=== PATIENT | female | born 1940 | race Caucasian/White ===

== ENCOUNTER 2018-09-08 15:23 | Emergency (ER) | payer MEDICARE, OTHER ==
[2018-09-08 15:57] VITALS: BP 105/59
--- NOTE | 2018-09-08 16:07 | UC ---
Throat Pain/Nasal Smith HPI - HPI Summary HPI Summary: 78 year old woman here with a chief complaint of runny nose sinus pressure sore throat and now with laryngitis. Says started about 6 days ago. Started about an worse. Rhinorrhea is yellow. Patient's tried acetaminophen and Vicks which helps briefly but then symptoms get worse again. No complaint of cough or chest congestion. - History of Current Complaint Chief Complaint: UCGeneralIllness Stated Complaint: CONGESTION/COUGH Time Seen by Provider: 09/08/18 15:57 Hx Last Menstrual Period: years Pain Intensity: 8 - Allergies/Home Medications Allergies/Adverse Reactions: Allergies Allergy/AdvReac Type Severity Reaction Status Date / Time No Known Allergies Allergy Verified 09/08/18 15:49 Home Medications: Home Medications Acetaminophen [Extra Strength Non-Aspirin] 1,000 mg PO Q8H PRN 09/08/18 [ History Confirmed 09/08/18] Omeprazole 40 mg PO DAILY 09/08/18 [History Confirmed 09/08/18] PMH/Surg Hx/FS Hx/Imm Hx Previously Healthy: Yes Cardiovascular History: Hypertension - Surgical History Surgical History: Yes Surgery Procedure, Year, and Place: YOUNG CHILD T&A. RIGHT ING. HERNIA REPAIR. - 5 BREST SURGERIES (FIBROCYSTIC); hysterectomy 05/18/15; cataracts 2013. R-TKA - Family History Known Family History: Negative: Diabetes - Social History Alcohol Use: Occasionally Alcohol Amount: 2-3 DRINKS/MONTH Substance Use Type: None Smoking Status (MU): Former Smoker Type: Cigarettes Amount Used/How Often: 1PPD 30 YRS Have You Smoked in the Last Year: No When Did the Patient Quit Smoking/Using Tobacco: Review of Systems All Other Systems Reviewed And Are Negative: Yes Constitutional: Positive: Negative Skin: Positive: Negative Eyes: Positive: Negative ENT: Positive: Sore Throat, Nasal Discharge, Sinus Congestion, Sinus Pain/ Tenderness Respiratory: Positive: Negative Cardiovascular: Positive: Negative Gastrointestinal: Positive: Negative Motor: Positive: Negative Neurovascular: Positive: Negative Musculoskeletal: Positive: Negative Neurological: Positive: Negative Psychological: Positive: Negative Is Patient Immunocompromised?: No Physical Exam Triage Information Reviewed: Yes Appearance: No Pain Distress, Well-Nourished, Ill-Appearing - MILD Vital Signs: Initial Vital Signs Temp 97.6 F 09/08/18 15:52 Pulse 100 09/08/18 15:52 Resp 20 09/08/18 15:52 BP 105/59 09/08/18 15:52 Pulse Ox 97 09/08/18 15:52 Vital Signs Reviewed: Yes Eye Exam: Normal Eyes: Positive: Conjunctiva Clear ENT: Positive: Pharyngeal erythema, Nasal congestion, Nasal drainage, TMs normal , Sinus tenderness Neck exam: Normal Neck: Positive: Supple Respiratory Exam: Normal Respiratory: Positive: Lungs clear, Normal breath sounds, No respiratory distress Cardiovascular: Positive: RRR Musculoskeletal Exam: Normal Musculoskeletal: Positive: Strength Intact, ROM Intact Neurological Exam: Normal Neurological: Positive: Alert, Muscle Tone Normal Psychological Exam: Normal Psychological: Positive: Age Appropriate Behavior Skin Exam: Normal Throat Pain/Nasal Course/Dx - Course Course Of Treatment: DISCUSSED VIRAL VERSES BACTERIAL INFECTIONS AND THE ROLE OF ANTIBIOTICS. THE PATIENT PREFERS TO BE ON ANTIBIOTICS AT THIS TIME. - Differential Dx/Diagnosis Provider Diagnoses: SINUSITIS Discharge - Sign-Out/Discharge Documenting (check all that apply): Patient Departure All imaging exams completed and their final reports reviewed: No Studies - Discharge Plan Condition: Stable Disposition: HOME Prescriptions: Amoxicillin/Clavulanate TAB* [Augmentin TAB 875*] 875 mg PO BID #20 tab Patient Education Materials: Sinusitis (ED) Referrals: Leonila Tinoco MD [Primary Care Provider] - Additional Instructions: FOLLOW UP WITH YOUR DOCTOR IF NOT COMPLETELY IMPROVED. GET RECHECKED FOR ANY WORSENING OF YOUR CONDITION OR QUESTIONS OR CONCERNS. - Billing Disposition and Condition Condition: STABLE Disposition: Home
== END 2018-09-08 16:15 | disposition home or self-care (01) ==
LOC: UCCORT 15:23
DX: J32.9 Chronic sinusitis, unspecified (principal); I10 Essential (primary) hypertension; Z87.891 Personal history of nicotine dependence
CPT/HCPCS: 99202; G0463

== ENCOUNTER 2019-09-11 13:11 | Emergency (ER) | payer MEDICARE, OTHER ==
--- OUTSIDE RECORDS SUMMARY | 2019-09-11 13:36 | XMS REPORT | Continuity of Care Document ---
:1940 External Reference #:[id number] Author Name Leonila Tinoco MD Address [address] [place] [address] Care Team Providers Name Role Phone Nolan Charles MD - Cardiovascular Care Team Information [facility] Disease Dinesh Qureshi MD - Obstetrics & Care Team Information [facility] Gynecology Clarence Herrera MD - Orthopaedic Care Team Information [facility] [phone] Surgery Abebe Narayan MD - Care Team Information [facility] [phone] - Care Team Information [facility] [phone] Rheumatology Problems Active Problems Provider Date Peripheral venous insufficiency Leonila Tinoco MD Onset: 01/13/2013 Actinic keratosis Leonila Tinoco MD Onset: 01/13/2013 Spondylosis without myelopathy Leonila Tinoco MD Onset: 08/07/2010 Gastroesophageal reflux disease Leonila Tinoco MD Onset: 08/07/2010 History of polyp of colon Leonila Tinoco MD Onset: 08/07/2010 Essential hypertension Leonila Tinoco MD Onset: 09/08/2015 Mild persistent asthma Leonila Tinoco MD Onset: 2016 Impaired fasting glycaemia Leonila Tinoco MD Onset: 09/03/2016 Atherosclerosis of aorta Leonila Tinoco MD Onset: 09/01/2018 Hypokalemia Leonila Tinoco MD Onset: 01/22/2019 Edema Leonila Tinoco MD Onset: 01/22/2019 Rheumatoid arthritis Leonila Tinoco MD Onset: 04/07/2019 Systemic lupus erythematosus Leonila Tinoco MD Onset: 04/07/2019 Social History Type Date Description Comments Sex Unknown Tobacco Use Start: Unknown End: Former Cigarette Smoker Unknown Smoking Status Reviewed: 04/08/19 Former Cigarette Smoker ETOH Use 08/25/2019 Currently consumes alcohol 1 serving 4 times per week Tobacco Use Start: Unknown End: Patient is a former smoker Unknown Allergies, Adverse Reactions, Alerts Active Allergies Reaction Severity Comments Date NKDA 01/03/2015 Environmental 08/25/2019 Medications Active Medications SIG Qnty Indications Ordering Provider Date Simvastatin 1 by mouth 90tabs I70.0 Leonila Tinoco MD 08/25/2019 20mg Tablets every day R73.01 I87.2 Aspirin 81 1 by mouth every otc I70.0 Leonila Tinoco, 05/25/[address] day Potassium Chloride ER take 1 capsule 90caps E87.6 Leonila Tinoco, 2018 10Meq daily MD Capsules ER Hydrochlorothiazide 1 by mouth every 90tabs I10 Leonila Tinoco, 09/01/2018 12.5mg day MD Tablets Losartan Potassium 1 by mouth every 90tabs I10 Leonila Tinoco, 01/15/2018 50mg Tablets day Omeprazole take one capsule 90caps K21.9 Leonila Tinoco, 03/14/[address] by mouth every MD day as needed for heartburn Advair Diskus inhale one puff 180units J45.901 Leonila Tinoco, 2016 250-50mcg/Dose by mouth twice a MD Aerosol day J45.30 Ventolin HFA 2 puffs every 4 24gm J45.20 Leonila Tinoco MD 05/26/2015 108(90Base) hours as needed mcg/Act Aerosol Levalbuterol HCL 1.25 mg neb every 3Boxes J45.20 Leonila Tinoco MD 2009 1.25mg/3ML 6 hours as needed Nebulizer Allergy 24Hour 1 by mouth every J30.9 Unknown Indoor/Outdoor day 10mg Tablets Spironolactone take one-half 135tabs R60.9 Leonila Tinoco MD 25mg Tablets (1/2) tablet in the morning and evening Methotrexate Sodium 3 tablets once a M06.9 Unknown 2.5mg week Tablets M32.9 Ra Arthritis Pain Relief as needed Unknown Acetaminophen 650mg Tablets ER Folic Acid 1 by mouth every day Unknown 1mg Tablets Prednisone 1 by mouth every day Dinesh Qureshi MD 5mg Tablets Montelukast Sodium 1 by mouth every day Unknown 10mg Tablets History Medications Klor-Con M10 Take 1 Tablet 90tabs E87.6 Leonila Tinoco MD 03/09/2019 - Daily 04/10/2019 10Meq Tablets ER Immunizations CPT Code Status Date Vaccine Reaction Lot # [id number] Given 06/25/2019 Fluzone Highdose Age 65 And Given at [facility] Over Preservative & Antibiotic Drugs--per pt today. Free UZAIR COATES 08/25/19 15582 Given 07/21/2018 Fluzone Highdose Age 65 And Over Preservative & Antibiotic Free 78741 Given 07/04/2017 Fluzone Highdose Age 65 And Given At Pharmacy Over Preservative & Antibiotic Free 19954 Given 08/06/2016 Fluzone Highdose Age 65 And [facility] Over Preservative & Antibiotic Free 17393 Given 09/08/2015 Prevnar 13 Pneumococal [id number] Conjugate Vaccine 23872 Given 07/28/2015 Fluzone Highdose Age 65 And Over Preservative & Antibiotic Free 14318 Given 07/07/2014 Fluzone Highdose Age 65 And Over Preservative & Antibiotic Free 82607 Given 07/31/2013 Zoster (Zostavax) 30473 Given 07/17/2013 Afluria Or Fluvirin Flu Vac Intramuscular 57370 Given 07/22/2012 Afluria Or Fluvirin Flu Vac VIS DATE 04/21/12 Intramuscular 30562 Given 08/21/2011 Pneumococcal 23 Immunization VIS DATE 02/03/10 Adult Or Immunosuppressed Patient 68472 Given 07/13/2011 Afluria Or Fluvirin Flu Vac Intramuscular 48745 Given 01/03/2011 Tetanus And Diptheria Toxoid 7 Years And Older Preserv Free 14850 Given 10/21/2002 Immunization Td 7 Yrs Or Older [id number] Refused 07/14/2018 Flu Vaccine NOS [id number] Refused 07/14/2018 Shingrix (Shingles) Zoster Vaccine HZV, Recombinant , Subunit, Adj Vital Signs Date Vital Result Comment 08/25/2019 8:39am Body Temperature 98.8 F tympanic Weight 176.25 lb Heart Rate 76 /min BP Systolic 124 mmHg BP Diastolic 66 mmHg Respiratory Rate 16 /min Height 62 inches 5'2" O2 % BldC Oximetry 96 % Room Air BMI (Body Mass Index) 32.2 kg/m2 05/25/2019 10:30am Weight 163.38 lb Heart Rate 68 /min BP Systolic 124 mmHg BP Diastolic 80 mmHg Respiratory Rate 18 /min Height 62 inches 5'2" BMI (Body Mass Index) 29.9 kg/m2 Results Test Acquired Date Facility Test Result H/L Range Note [facility] S[facility] 138 mmol/L 135-146 1, 2 Potassium 4.0 mmol/L 3.5-5.2 Chloride# 102 mmol/L 97-110 3 Carbon Dioxide 28 mmol/L 24-34 Glucose 88 mg/dL 70-105 BUN 14 mg/dL 6-26 Creatinine 0.9 mg/dL 0.5-1.4 Calcium 9.2 mg/dL 8.5-10.5 4 Female Egfr 65 >60 5 Male Egfr 83 >60 6 Anion Gap 8 mmol/L 5-15 7 Hemoglobin A1c 08/20/2019 [facility] Hemoglobin A1c 6.2 % High 4.1-5.9 Estimated Average Glucose Calc 131 mg/dL 71-140 CBC with Auto Diff-fcmg 08/20/2019 [facility] WBC 6.6 K/uL 4.1-11.0 RBC 3.69 M/uL Low 4.00-5.40 Hemoglobin 12.4 gm/dL 12.0-16.0 Hematocrit 36.3 % 36.0-47.0 MCV 98.4 fL High 80.0-97.0 MCH 33.7 pg High 27.0-32.0 MCHC 34.2 g/dL 32.0-36.0 RDW 16.2 % High 11.5-14.5 PLT Count 267 K/ul 140-400 MPV 8.3 FL 7.1-10.7 Neutrophil 62.9 % 35.0-75.0 Lymphocyte 25.4 % 16.0-52.0 Monocyte 7.9 % 2.0-10.0 Eosinophil 2.7 % 0.0-5.0 Basophil 1.1 % 0.0-4.0 Abs Neutrophils 4.2 K/uL 2.1-8.0 Abs Lymphocytes 1.7 K/uL 0.8-5.5 Abs Monocytes 0.5 K/uL 0.1-1.0 Abs Eosinophils 0.2 K/uL 0.0-0.5 Abs Basophils 0.1 K/uL 0.0-0.3 Laboratory test finding 05/19/2019 [facility] Esr 38 mm/hr High 0-20 Creatinine 0.9 mg/dL 0.5-1.4 CRP (C-Reactive) 1.54 mg/dL High 0.00-0.75 CBC with Auto Diff-fcmg 05/19/2019 [facility] WBC 6.2 K/uL 4.1-11.0 RBC 3.78 M/uL Low 4.00-5.40 Hemoglobin 12.6 gm/dL 12.0-16.0 Hematocrit 35.8 % Low 36.0-47.0 MCV 94.9 fL 80.0-97.0 MCH 33.3 pg High 27.0-32.0 MCHC 35.1 g/dL 32.0-36.0 RDW 13.4 % 11.5-14.5 PLT Count 235 K/ul 140-400 MPV 8.7 FL 7.1-10.7 Neutrophil 68.8 % 35.0-75.0 Lymphocyte 19.0 % 16.0-52.0 Monocyte 7.6 % 2.0-10.0 Eosinophil 3.6 % 0.0-5.0 Basophil 1.0 % 0.0-4.0 Abs Neutrophils 4.3 K/uL 2.1-8.0 Abs Lymphocytes 1.2 K/uL 0.8-5.5 Abs Monocytes 0.5 K/uL 0.1-1.0 Abs Eosinophils 0.2 K/uL 0.0-0.5 Abs Basophils 0.1 K/uL 0.0-0.3 Laboratory test finding 05/19/2019 [facility] 16 U/L 8-42 Alt 12 U/L 3-42 Basic (BMP) 05/18/2019 [facility] Sodium 133 mmol/L Low 135-146 8 Potassium 3.2 mmol/L Low 3.5-5.2 Chloride# 95 mmol/L Low 97-110 9 Carbon Dioxide 25 mmol/L 24-34 Glucose 98 mg/dL 70-105 BUN 21 mg/dL 6-26 Creatinine 1.0 mg/dL 0.5-1.4 Calcium 9.2 mg/dL 8.5-10.5 10 Female Egfr 56 Low >60 11 Male Egfr 75 >60 12 Anion Gap 13 mmol/L 5-15 13 Hemoglobin A1c 05/18/2019 [place] Hemoglobin A1c 5.7 % 4.1-5.9 Estimated Average Glucose Calc 117 mg/dL 71-140 [facility] mm/hr High 0-20 finding Basic Metabolic Panel 05/06/2019 [facility] Glucose 116 mg/dL High 74-106 14 (315)- - BUN 22 mg/dL High 7-18 Creatinine 1.2 mg/dL Normal 0.6-1.3 Glom Filtration Rate, Estimate 46 mL/min >60 If 56 mL/min >60 15 BUN/Creat 18.3 ratio Sodium 130 mmol/L Low 136-145 Potassium 3.4 mmol/L Low 3.5-5.1 Chloride 93 mmol/L Low 98-107 Carbon Dioxide 25 mmol/L Normal 21-32 Anion Gap 12 mEq/L Normal 8-16 Calcium 9.3 mg/dL Normal 8.5-10.1 Laboratory test 05/06/2019 [facility] D-Dimer, 3.28 ug/ mL Critical 16 finding (315)- - Quantitative high 1 3 mos 2 Updated reference range on new analyzer 3 Updated reference range on new analyzer 4 Updated reference range 02-18-2019 5 Concerning GFR Guidelines for Americans: Normal function or mild renal disease, if clinically at risk: >/= 60 mL/min Moderately decreased: 30-59 Severely decreased: 15-29 Renal failure: <15 There is reduced accuracy above 60ml/min/1.73 m squared, but the numeric value may be clinically useful in the near 60 range 6 Concerning GFR Guidelines: Normal function or mild renal disease, if clinically at risk: >/= 60 mL/min Moderately decreased: 30-59 Severely decreased: 15-29 Renal failure: <15 There is reduced accuracy above 60ml/min/1.73 m squared, but the numeric value may be clinically useful in the near 60 range Glomerular Filtration Rate (GFR) is estimated based on the CKD-EPI equation, which assumes a steady state for creatinine as recommended by the National Kidney Disease Education Program in conjunction with the National Institutes of Health and the National Kidney Foundation. Clinical conditions in which it may be necessary to measure GFR by using clearance methods include extremes of age and body size, severe malnutrition or obesity, diseases of skeletal muscle, paraplegia or quadriplegia, vegetarian diet, rapidly changing kidney function, and calculation of the dose of potentially toxic drugs that are excreted by the kidneys. 7 Updated Reference Range 8 Updated reference range on new analyzer 9 Updated reference range on new analyzer 10 Updated reference range 02-18-2019 11 Concerning GFR Guidelines for Americans: Normal function or mild renal disease, if clinically at risk: >/= 60 mL/min Moderately decreased: 30-59 Severely decreased: 15-29 Renal failure: <15 There is reduced accuracy above 60ml/min/1.73 m squared, but the numeric value may be clinically useful in the near 60 range 12 Concerning GFR Guidelines: Normal function or mild renal disease, if clinically at risk: >/= 60 mL/min Moderately decreased: 30-59 Severely decreased: 15-29 Renal failure: <15 There is reduced accuracy above 60ml/min/1.73 m squared, but the numeric value may be clinically useful in the near 60 range Glomerular Filtration Rate (GFR) is estimated based on the CKD-EPI equation, which assumes a steady state for creatinine as recommended by the National Kidney Disease Education Program in conjunction with the National Institutes of Health and the National Kidney Foundation. Clinical conditions in which it may be necessary to measure GFR by using clearance methods include extremes of age and body size, severe malnutrition or obesity, diseases of skeletal muscle, paraplegia or quadriplegia, vegetarian diet, rapidly changing kidney function, and calculation of the dose of potentially toxic drugs that are excreted by the kidneys. 13 Updated Reference Range 14 M25.552 15 Note: Persistent reduction for 3 months or more in an eGFR <60 mL/min/1.73 m2 defines CKD. Patients with eGFR values >/=60 mL/min/1.73 m2 may also have CKD if evidence of persistent proteinuria is present. The original MDRD equation for estimated GFR is not valid for patients less than 18 years of age. Additional information may be found at www.kdoqi.org. 16 <=0.49 ug/mL - Low likelihood of DIC, DVT or Pulmonary Embolism >0.49 ug/mL - Additional testing should be done to rule out DIC, DVT, or Pulmonary embolism as clinically indicated. ([facility] has established a 97.89% negative predictive value for thrombotic disease when a cutoff value of 0.5 ug/mL is used.) Procedures Date Code Description Status 08/25/2019 52591 Measure Blood Oxygen Level Single Determination Completed 05/06/2019 01181 Measure Blood Oxygen Level Single Determination Completed 09/10/2018 [id number] Mammogram Completed 01/26/2016 [id number] Bone Mineral Density Test Completed 07/06/2015 [id number] Mammogram Completed 03/08/2011 [id number] Colonoscopy Completed Medical Devices Description No Information Available Encounters Type Date Location Provider Dx Diagnosis Office Visit 05/25/2019 [facility] Leonila Tinoco MD I87.2 Venous insufficiency 10:00a (chronic) (peripheral) L57.0 Actinic keratosis J30.9 Allergic rhinitis, unspecified M47.817 Spondyls w/o myelopathy or radiculopathy, lumbosacr region K21.9 Gastro-esophageal reflux disease without esophagitis Z86.010 Personal history of colonic polyps I10 Essential (primary) hypertension J45.30 Mild persistent asthma, uncomplicated R73.01 Impaired fasting glucose I70.0 Atherosclerosis of aorta E87.6 Hypokalemia R60.9 Edema, unspecified M06.9 Rheumatoid arthritis, unspecified M32.9 Systemic lupus erythematosus, unspecified Z68.29 Body mass index (BMI) 29.0-29.9, adult Office Visit 05/06/2019 2:30p [facility] Deann Rae PA M25.552 Pain in LEFT hip R06.02 Shortness of breath Z68.30 Body mass index (BMI) 30.0-30.9, adult Office Visit 04/07/2019 11:00a [facility] Leonila Tinoco MD Z01.818 Encounter for other preprocedural examination M17.11 Unilateral primary osteoarthritis, RIGHT knee M06.9 Rheumatoid arthritis, unspecified M32.9 Systemic lupus erythematosus, unspecified I87.2 Venous insufficiency (chronic) (peripheral) M47.819 Spondylosis without myelopathy or radiculopathy, site unsp K21.9 Gastro-esophageal reflux disease without esophagitis I10 Essential (primary) hypertension J45.30 Mild persistent asthma, uncomplicated R73.01 Impaired fasting glucose R60.9 Edema, unspecified E87.6 Hypokalemia I70.0 Atherosclerosis of aorta Z68.31 Body mass index (BMI) 31.0-31.9, adult Assessments Date Code Description Provider 08/25/2019 E66.9 Obesity, unspecified Leonila Tinoco MD 08/25/2019 E87.6 Hypokalemia Leonila Tinoco MD 08/25/2019 R73.01 Impaired fasting glucose Leonila Tinoco MD 08/25/2019 I10 Essential (primary) hypertension Leonila Tinoco MD 08/25/2019 I87.2 Peripheral venous insufficiency Leonila Tinoco MD 08/25/2019 L57.0 Actinic keratosis Leonial Tinoco MD 08/25/2019 M47.817 Spondylosis without myelopathy or Leonila Tinoco MD radiculopathy, lumbosacral region 08/25/2019 K21.9 Gastro-esophageal reflux disease without Leonila Tinoco MD esophagitis 08/25/2019 Z86.010 Personal history of colonic polyps Leonila Tinoco MD 08/25/2019 J45.30 Mild persistent asthma, uncomplicated Leonila Tinoco MD 08/25/2019 I70.0 Atherosclerosis of aorta Leonila Tinoco MD 08/25/2019 R60.9 Edema, unspecified Leonila Tinoco MD 08/25/2019 M06.9 Rheumatoid arthritis, unspecified Leonila Tinoco MD 08/25/2019 M32.9 Systemic lupus erythematosus, unspecified Leonila Tinoco MD 08/25/2019 Z12.31 Encounter for screening mammogram for Leonila Tinoco MD malignant neoplasm of breast 08/25/2019 Z68.32 Body mass index (BMI) 32.0-32.9, adult Leonila Tinoco MD 08/20/2019 E87.6 Hypokalemia Leonila Tinoco MD 08/20/2019 E87.6 Hypokalemia Schedule, Laboratory 08/20/2019 R73.01 Impaired fasting glucose Leonila Tinoco MD 08/20/2019 R73.01 Impaired fasting glucose Schedule, Laboratory 08/20/2019 I10 Essential (primary) hypertension Leonila Tinoco MD 08/20/2019 I10 Essential (primary) hypertension Schedule, Laboratory 08/20/2019 E87.6 Hypokalemia [facility] 08/20/2019 R73.01 [facility]aired [facility] I10 Essential (primary) hypertension [facility] 05/25/2019 I87.2 Peripheral venous insufficiency Leonila Tinoco MD 05/25/2019 L57.0 Actinic keratosis Leonila Tinoco MD 05/25/2019 J30.9 Allergic rhinitis, unspecified Leonila Tinoco MD 05/25/2019 M47.817 Spondylosis without myelopathy or Leonila Tinoco MD radiculopathy, lumbosacral region 05/25/2019 K21.9 Gastro-esophageal reflux disease without Leonila Tinoco MD esophagitis 05/25/2019 Z86.010 Personal history of colonic polyps Leonila Tinoco MD 05/25/2019 I10 Essential (primary) hypertension Leonila Tinoco MD 05/25/2019 J45.30 Mild persistent asthma, uncomplicated Leonila Tinoco MD 05/25/2019 R73.01 Impaired fasting glucose Leonila Tinoco MD 05/25/2019 I70.0 Atherosclerosis of aorta Leonila Tinoco MD 05/25/2019 E87.6 Hypokalemia Leonila Tinoco MD 05/25/2019 R60.9 Edema, unspecified Leonila Tinoco MD 05/25/2019 M06.9 Rheumatoid arthritis, unspecified Leonila Tinoco MD 05/25/2019 M32.9 Systemic lupus erythematosus, unspecified Leonila Tinoco MD 05/25/2019 Z68.29 Body mass index (BMI) 29.0-29.9, adult Leonila Tinoco MD 05/19/2019 Z79.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 Leonila Tinoco MD 05/19/2019 Z79.899 Other residential (current) drug therapy Schedule, Laboratory 05/19/2019 Z79.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 [facility] 05/18/2019 I10 Essential (primary) hypertension Leonila Tinoco MD 05/18/2019 I10 Essential (primary) hypertension Schedule, Laboratory 05/18/2019 R73.01 Impaired fasting glucose Leonila Tinoco MD 05/18/2019 R73.01 Impaired fasting glucose Schedule, Laboratory 05/18/2019 R70.0 Elevated erythrocyte sedimentation rate Leonila Tinoco MD 05/18/2019 R70.0 Elevated erythrocyte sedimentation rate Schedule, Laboratory 05/18/2019 I10 Essential (primary[facility] 05/18/2019 R73.01 Impaired fasting glucose [facility] 05/18/2019 R70.0 Elevated erythrocyte sedimentation rate [facility] 05/06/2019 M25.552 Pain in LEFT hip Leonila Tinoco MD 05/06/2019 M25.552 Pain in LEFT hip Deann Rae PA 05/06/2019 R06.02 Shortness of breath Deann Rae PA 05/06/2019 Z68.30 Body mass index (BMI) 30.0-30.9, adult Deann Rae PA 05/06/2019 M25.552 Pain in LEFT hip Schedule, Laboratory 04/07/2019 Z01.818 Encounter for other preprocedural examination Leonila Tinoco MD 04/07/2019 M17.11 Unilateral primary osteoarthritis, RIGHT knee Leonila Tinoco MD 04/07/2019 M06.9 Rheumatoid arthritis, unspecified Leonila Tinoco MD 04/07/2019 M32.9 Systemic lupus erythematosus, unspecified Leonila Tinoco MD 04/07/2019 I87.2 Peripheral venous insufficiency Leonila Tinoco MD 04/07/2019 M47.819 Spondylosis without myelopathy or Leonila Tinoco MD radiculopathy, site unspec 04/07/2019 K21.9 Gastroesophageal reflux disease Leonila Tinoco MD 04/07/2019 I10 Essential (primary) hypertension Leonila Tinoco MD 04/07/2019 J45.30 Mild persistent asthma, uncomplicated Leonila Tinoco MD 04/07/2019 R73.01 Impaired fasting glucose Leonila Tinoco MD 04/07/2019 R60.9 Edema, unspecified Leonila Tinoco MD 04/07/2019 E87.6 Hypokalemia Leonila Tinoco MD 04/07/2019 I70.0 Atherosclerosis of aorta Leonila Tinoco MD 04/07/2019 Z68.31 Body mass index (BMI) 31.0-31.9, adult Leonila Tinoco MD Plan of Treatment Future Appointment(s):02/23/2020 7:45 am - Schedule, Laboratory at [facility]2019 10:30 am - Leonila Tinoco MD at [facility]08/25/2019 - Leonila Tinoco MDE66.9 Obesity, unspecifiedComments:Counseled about strategies for weight loss and the impact of weight on chronic medical problems.Work on healthy lifestyle, with regular exercise (20 min daily will help) and eat a healthy diet. Formal diet plans work best.She has gained 13 pounds since the last office visit. She was advised to count her calorie intake. The patient was advised to stay away from cookies and goodies as well. She was advised to follow a healthy diet and healthy lifestyle.E87.6 HypokalemiaNew Labs:Basic (BMP), Scheduled: Comments:She will stay on potassium supplements.Follow up:6-months MEDICARE WELLNESS EXAM and follow up with fasting labs prior.R73.01 Impaired fasting glucoseNew Medication:Simvastatin 20 mg - 1 by mouth every dayNew Labs: Hemoglobin A1c, Scheduled: 02/23/20Comments:Impaired fasting glucose is slightly worsening, but still at goal. HbA1c is worsening at 6.2. She was recommended to watch pasta and bread. Blood sugar normal. Kidney function is normal.I10 Essential (primary) hypertensionNew Labs:CBC with Auto Diff-fcmg, Scheduled: 02/23/20Comments:Blood pressure at goal on current medication. However, optimum control is blood pressure of less than 120/80. Do not add salt to your food. Encourage regular exercise and healthy diet to improve blood pressure.I87.2 Peripheral venous insufficiencyNew Medication:Simvastatin 20 mg - 1 by mouth every dayComments:Advised to elevate her legs.L57.0 Actinic keratosisComments:She was advised to use sunscreen when she is exposed to sun.M47.817 Spondylosis without myelopathy or radiculopathy, lumbosacral regionComments:She is taking Tylenol with benefit. Continue current medication.K21.9 Gastro-esophageal reflux disease without esophagitisComments: She takes the medication regularly. She was advised to try skipping one dose in a week.Z86.010 Personal history of colonic polypsComments:She is not due for her colonoscopy yet.J45.30 Mild persistent asthma, uncomplicatedNew Labs:Lipid, Scheduled: 02/23/20Comments:She continues to have symptoms of cough, sneeze and runny nose. She is using Advair twice a day. Continue current medication.I70.0 Atherosclerosis of aortaNew Medication:Simvastatin 20 mg - 1 by mouth every dayNew Labs:Lipid, Scheduled: 02/23/20Comments:We will start the patient on lose dose of simvastatin. She was educated about the myalgia common side effects of taking simvastatin. Patient was informed Ideally with the vascular disease that patient is having she should be placed on a cholesterol medication to protect the vessels. She will continue taking 81 mg of aspirin daily.R60.9 Edema, unspecifiedComments:Swelling has resolved with the use of spironolactone. Continue with this.M06.9 Rheumatoid arthritis, unspecifiedComments:Treated by Dr. Lu. Continue to follow.M32.9 Systemic lupus erythematosus, unspecifiedComments:Treated by Dr. Lu. Continue to follow.Z12.31 Encounter for screening mammogram for malignant neoplasm of breastNew Xrays:Mammogram Screening, Bilateral Incl CAD When Performe, Scheduled : 09/11/19Comments:She is due for mammogram after 09/10.Z68.32 Body mass index ( BMI) 32.0-32.9, adultComments:The BMI is the ratio between height and weight. Goal for a person over age 65 is between 23 and 30. You are overweight. Work on healthy lifestyle, with regular exercise (20 min daily will help) and eat a healthy diet. Formal diet plans work best. Functional Status Functional Condition Comment Date Status Complete lower and upper and lower dentures Active Hearing Aid in Both ears Active Mental Status Description No Information Available Referrals Description No Information Available
--- OUTSIDE RECORDS SUMMARY | 2019-09-11 13:36 | XMS REPORT | Summary of Care ---
:1940 Author Organization [facility] Address [address] [place] [address] Care Team Providers Name Role Phone Leonila Tinoco MD Primary Care Provider Reason for Visit Reason Comments Follow-up Encounter Details Date Type Department Care Team Description 09/08/2019 Office Visit Eileen Whaley Inflammatory arthritis ( Primary Dx); Rheumatology [facility] High risk medication use [address] [place] [address] [address] [id number] [place] [address] [phone] Allergies No Known Allergiesdocumented as of this encounter (statuses as of 09/10/2019) Medications Medication Sig Dispensed Refills Start End Status Date Date meloxicam (MOBIC) 7.5 Take 7.5 mg by 0 Active MG tablet mouth daily hydrochlorothiazide Take 12.5 mg by 0 Active (MICROZIDE) 12.5 MG mouth daily capsule triamcinolone Apply topically 0 Active (KENALOG) 0.5 % cream Two Times Daily losartan (COZAAR) 50 Take 50 mg by 0 Active MG tablet mouth daily cetirizine (ALLERGY Take 10 mg by 0 Active 24HOUR INDOOR/OUTDOOR) mouth daily 10 MG tablet omeprazole (PRILOSEC) Take 40 mg by 0 Active 40 MG capsule mouth as needed Fluticasone-Salmeterol Inhale 1 puff 0 Active (ADVAIR DISKUS) 250-50 into the lungs MCG/DOSE AEPB Two Times Daily albuterol (VENTOLIN Inhale 2 puffs 0 Active HFA) 108 (90 Base) into the lungs MCG/ACT inhaler every 4 (four) hours as needed for Wheezing levalbuterol (XOPENEX) Take 1 ampule 0 Active 1.25 MG/3ML nebulizer by nebulization solution every 6 (six) hours as needed for Wheezing spironolactone Take 25 mg by 0 Active (ALDACTONE) 25 MG mouth tablet montelukast Take 10 mg by 0 Active (SINGULAIR) 10 MG mouth nightly tablet KLOR-CON M10 10 MEQ 0 03/09/20 Active tablet 19 ferrous sulfate 325 Take 325 mg by 0 Active (65 FE) MG tablet mouth daily with breakfast predniSONE 5 MG Oral Take 0.5 30 tablet 0 09/08/20 Active Tablet (DELTASONE) tablets by mouth daily Hydroxychloroquine Take 1 tablet 60 tablet 0 09/08/20 Active Sulfate 200 MG Oral by mouth Two 019 Tablet (PLAQUENIL) Times Daily Methotrexate 2.5 MG Take 6 tablets 24 tablet 0 09/08/20 Active Oral Tablet by mouth every 019 7 (seven) days Folic Acid 1 MG Oral Take 1 tablet 30 tablet 0 09/08/20 Active Tablet (FOLVITE) by mouth daily hydroxychloroquine Take 2 tablets 60 tablet 11 04/01/20 Discontinued (PLAQUENIL) 200 MG by mouth daily 019 tablet folic acid (FOLVITE) 1 Take 1 tablet 90 tablet 4 07/02/20 Discontinued MG tabletIndications: by mouth daily 019 Seropositive rheumatoid arthritis methotrexate 2.5 MG Take 6 tablets 78 tablet 0 07/17/20 Discontinued tabletIndications: by mouth every 019 Seropositive 7 (seven) days rheumatoid arthritis Methotrexate 2.5 MG Take 6 tablets 72 tablet 1 09/08/20 Discontinued Oral Tablet by mouth every 019 (Reorder) 7 (seven) days predniSONE 5 MG Oral Take 0.5 45 tablet 1 09/08/20 Discontinued Tablet (DELTASONE) tablets by 019 mouth daily Folic Acid 1 MG Oral Take 1 tablet 90 tablet 1 09/08/20 Discontinued Tablet (FOLVITE) by mouth daily (Reorder) Hydroxychloroquine Take 1 tablet 180 tablet 1 09/08/20 Discontinued Sulfate 200 MG Oral by mouth Two 19 019 (Reorder) Tablet (PLAQUENIL) Times Daily documented as of this encounter (statuses as of 09/10/2019) Active Problems No known active problemsdocumented as of this encounter (statuses as of 2018) Social History Tobacco Use Types Packs/Day Years Used Date Former Smoker Cigarettes Smokeless Tobacco: Never Used Tobacco Cessation: Counseling Given: No Alcohol Use Drinks/Week oz/Week Comments Yes Sex Assigned at Date Recorded Not on file Job Start Date Occupation Industry Not on file Not on file Not on file Travel History Travel Start Travel End No recent travel history available. documented as of this encounter Last Filed Vital Signs Vital Sign Reading Time Taken Comments Blood Pressure 141/83 09/08/2019 9:41 AM EST Pulse 68 09/08/2019 9:41 AM EST Temperature 36.4 09/08/2019 9:41 AM EST C (97.6 F) Respiratory Rate 14 09/08/2019 9:41 AM EST Oxygen Saturation 95% 09/08/2019 9:41 AM EST Inhaled Oxygen Concentration - - Weight 80.7 kg (178 lb) 09/08/2019 9:41 AM EST Height 157.5 cm (5' 2") 09/08/2019 9:41 AM EST Body Mass Index 32.56 09/08/2019 9:41 AM EST documented in this encounter Progress Notes Hill Whaley MD - 09/08/2019 9:45 AM EST Subjective: Patient ID: Albertina Hardin is a 79 y.o. female. She has a history of an overlap RA/psoriatic arthritis/SLE, currently on methotrexate 6 tablets per week, Plaquenil 400 mg per day, folic acid 1 mg per day, and prednisone 5 mg per day. She had been doing well; however, she did have a flare of her arthritis, which resolved with the addition of prednisone at a dose of 5 mg per day. Since then, she has been doing well. Her blood work done at the time of her last appointment was unremarkable. Her rheumatologic review of systems is otherwise unremarkable. In her musculoskeletal examtoday, I do not appreciate any synovitis. ASSESSMENT: Seropositive rheumatoid arthritis/systemic lupus erythematosus/psoriatic arthritis, seems to be controlled on the above mentioned medications. PLAN: 1. Continue Plaquenil methotrexate, folic acid without changes. 2. Decrease prednisone to 2.5 mg per day. 3. Routine labs today. 4. Followup appointment in 4 months or before that if needed. The patient was counseled extensively on MTX, possible benefits, possible side effects, risk of liver inflammation and her questions were answered as much as possible in this regard. Patient is aware of plaquenil's potential to cause retinal and corneal pigment deposits, myopathy and neuropathy. Patient is also aware of the need to follow up with ophthalmology in this regard. Patient is aware of the possible side effects of chronic use of steroids including AVN. Results for orders placed or performed in visit on 09/08/19 Sedimentation rate, automated Result Value Ref Range Sed Rate - ESR 33 (H) <30 mm/hr Creatinine with GFR Result Value Ref Range Creatinine 0.80 0.50 - 0.90 mg/dL GFR Non 2008 CDK-EPI 70 >60 mL/min/1.73m2 GFR 2008 CKD-EPI 81 >60 mL/min/1.73m2 C-reactive protein Result Value Ref Range C Reactive Protein 6.2 <8.0 mg/L CBC and Differential Result Value Ref Range White Blood Cell 7.5 4 - 10 10*3/uL Red Blood Cell 3.92 (L) 4.1 - 5.3 10*6/uL Hemoglobin 13.2 11.5 - 15.5 g/dL Hematocrit 39.6 36 - 45 % Mean Cell Volume 101.1 (H) 80 - 96 fL Mean Cell Hemoglobin 33.7 (H) 27 - 33 pg Mean Cell Hgb Conc 33.3 32.0 - 36.0 g/dL Red Cell Dist Width 15.8 (H) 11.5 - 14.5 % Platelet Count 229 150 - 400 10*3/uL Differential Type Automated Diff Neutrophil 83 % Lymphocyte 11 % Monocyte 4 % Eosinophil 1 % Basophil 1 % Abs Neutrophil 6.22 1.8 - 7.0 10*3/uL Abs Lymphocyte 0.83 (L) 1.2 - 4.0 10*3/uL Abs Monocyte 0.34 0 - 0.8 10*3/uL Abs Eosinophil 0.08 0 - 0.5 10*3/uL Abs Basophil 0.07 0 - 0.2 10*3/uL Nucleated Red Blood Cells 0 0 - 0 /100 AST Result Value Ref Range AST/SGO 22 <32 U/L ALT Result Value Ref Range ALT/SGP 19 <33 U/L HPI Albertina has a past medical history of Arthritis, Asthma, GERD ( gastroesophageal reflux disease), and Hypertension. Albertina has a past surgical history that includes Breast surgery and Hernia repair. Her family history includes Alcohol abuse in her mother; Cancer in her mother. Albertina reports that she has quit smoking. Her smoking use included cigarettes. She has never usedsmokeless tobacco. She reports current alcohol use. No history on file for drug. Albertina has a current medication list which includes the following prescription (s): albuterol, cetirizine, ferrous sulfate, fluticasone-salmeterol, folic acid , hydrochlorothiazide, hydroxychloroquine,klor-con m10, levalbuterol, losartan, meloxicam, methotrexate, montelukast, omeprazole, prednisone, spironolactone, and triamcinolone. Albertina has No Known Allergies. Review of Systems Constitutional: Negative. HENT: Negative. Eyes: Negative. Respiratory: Negative. Cardiovascular: Negative. Gastrointestinal: Negative. Endocrine: Negative. Genitourinary: Negative. Musculoskeletal: Positive for arthralgias. Negative for joint swelling. Skin: Negative. Allergic/Immunologic: Negative. Neurological: Negative. Hematological: Negative. Psychiatric/Behavioral: Negative. Objective: Physical Exam Vitals signs reviewed. Constitutional: Appearance: She is well-developed. HENT: Head: Normocephalic and atraumatic. Eyes: Conjunctiva/sclera: Conjunctivae normal. Neck: Thyroid: No thyromegaly. Trachea: No tracheal deviation. Cardiovascular: Rate and Rhythm: Normal rate and regular rhythm. Pulmonary: Effort: Pulmonary effort is normal. No respiratory distress. Musculoskeletal: General: No swelling or tenderness. Skin: General: Skin is warm and dry. Neurological: Mental Status: She is alert and oriented to person, place, and time. documented in this encounter Plan of Treatment Date Type Specialty Care Team Description 01/12/2020 Office Visit Rheumatology [place] Whaley MD [address] [facility] 2nd Floor [address] [place] [address] [phone] Health Maintenance Due Date Last Done Comments MMR Vaccines (1 of 1 - Standard 1943 series) DTaP,Tdap,and Td Vaccines (1 - 1949 Tdap) Zoster Vaccines (1 of 2) 01/20/1992 Osteoporosis Screening 2 yr 2007 Pneumococcal Vaccine: 65+ Years (1 2007 of 2 - PCV13) Influenza Vaccine 07/21/2019 HIB Vaccines Aged Out No longer eligible based on patient's age to complete this topic Hepatitis A Vaccines Aged Out No longer eligible based on patient's age to complete this topic Hepatitis B Vaccines Aged Out No longer eligible based on patient's age to complete this topic IPV Vaccines Aged Out No longer eligible based on patient's age to complete this topic Pneumococcal Vaccine: Pediatrics Aged Out No longer eligible based on (0 to 5 Years) and At-Risk patient's age to complete this Patients (6 to 64 Years) topic Varicella Vaccines Aged Out No longer eligible based on patient's age to complete this topic documented as of this encounter Procedures Procedure Name Priority Date/Time Associated Diagnosis Comments CREATININE WITH GFR Routine 09/08/2019 10:11 Inflammatory Results for this AM EST arthritis procedure are in High risk medication the results use section. SEDIMENTATION RATE, Routine 09/08/2019 10:11 Inflammatory Results for this AUTOMATED AM EST arthritis procedure are in High risk medication the results use section. CBC AND DIFFERENTIAL Routine 09/08/2019 10:11 Inflammatory Results for this AM EST arthritis procedure are in High risk medication the results use section. C-REACTIVE PROTEIN Routine 09/08/2019 10:11 Inflammatory Results for this AM EST arthritis procedure are in High risk medication the results use section. ALT Routine 09/08/2019 10:11 Inflammatory Results for this AM EST arthritis procedure are in High risk medication the results use section. AST Routine 09/08/2019 10:11 Inflammatory Results for this AM EST arthritis procedure are in High risk medication the results use section. documented in this encounter Results Sedimentation rate, automated (09/08/2019 10:11 AM EST) Sed Rate - ESR 33 (H) <30 mm/hr [facility] Pathology Specimen EDTA Whole Blood Performing Organization Address City/[facility] Phone [facility] [address] [place] [address] [facility] [address] [place] [address] Pathology Creatinine with GFR (09/08/2019 10:11 AM EST) Creatinine 0.80 0.50 - 0.90 [facility] mg/dL [facility] Pathology GFR Non 70 >60 [facility] [place] 2008 CDK-EPI mL/min/1.73m2 [facility] Pathology GFR 81 >60 [facility] 2009 CKD-EPI mL/min/1.73m2 [facility] Pathology Specimen Plasma Performing Organization Address City/[facility] Phone Number [facility] [address] [place] [address] [facility] [address] [place] [address] Pathology C-reactive protein (09/08/2019 10:11 AM EST) C Reactive Protein 6.2 <8.0 mg/L [facility] Pathology Specimen Plasma Performing Organization Address City/[facility] Phone Number [facility] [address] [place] [address] [phone] [facility] [address] [place] [address] Pathology CBC and Differential (09/08/2019 10:11 AM EST) White Blood Cell 7.5 4 - 10 [facility] 10*3/uL [facility] Pathology Red Blood Cell 3.92 (L) 4.1 - 5.3 [facility] 10*6/uL [facility] Pathology Hemoglobin 13.2 11.5 - 15.5 [facility] g/dL [facility] Pathology Hematocrit 39.6 36 - 45 % [facility] Pathology Mean Cell Volume 101.1 (H) 80 - 96 fL [facility] Pathology Mean Cell Hemoglobin 33.7 (H) 27 - 33 pg [facility] Pathology Mean Cell Hgb Conc 33.3 32.0 - 36.0 [facility] g/dL [facility] Pathology Red Cell Dist Width 15.8 (H) 11.5 - 14.5 % [facility] Platelet Count 229 150 - 400 [facility] 10*3/uL [facility] Pathology Differential Type Automated Diff [facility] Neutrophil 83 % [facility]ology Lymphocyte 11 % [facility] Monocyte 4 % [facility] Pathology Eosinophil 1 % [facility]ology Basophil 1 % [facility] Abs Neutrophil 6.22 1.8 - 7.0 [facility] 10*3/uL [facility] Pathology Abs Lymphocyte 0.83 (L) 1.2 - 4.0 [facility] 10*3/uL [facility] Pathology Abs Monocyte 0.34 0 - 0.8 [facility] 10*3/uL [facility] Pathology Abs Eosinophil 0.08 0 - 0.5 [facility] 10*3/uL [facility] Pathology Abs Basophil 0.07 0 - 0.2 [facility] 10*3/uL [facility] Pathology Nucleated Red Blood 0 0 - 0 [facility] Cells /100{WBCs} [facility]ology Specimen EDTA Whole Blood Performing Organization Address [facility] Phone Number [facility] [address] [place] [address] [facility] [address] [place] [address] Pathology AST (09/08/2019 10:11 AM EST) AST/SGO 22 <32 U/L [facility] Pathology Specimen Plasma Performing Organization Address [facility] Phone Number [facility] [address] [place] [address] [facility] [address] [place] [address] Pathology ALT (09/08/2019 10:11 AM EST) ALT/SGP 19 <33 U/L [facility] Pathology Specimen Plasma Performing Organization Address [facility] Phone Number [facility] [address] [place] [address] [facility] [address] [place] [address] Pathology documented in this encounter Visit Diagnoses Diagnosis Inflammatory arthritis - Primary Unspecified inflammatory polyarthropathy High risk medication use Encounter for long-term (current) use of other medications documented in this encounter
[2019-09-11 13:49] VITALS: BP 146/68
--- NOTE | 2019-09-11 14:27 | ED ---
Throat Pain/Nasal Congestion - HPI Summary HPI Summary: 79 yr old female with the complaint of left sided facial pain. Onset over the past 24 hours: She has left side facial swelling, pain, and it is worse putting things in her mouth. She has bottom dentures but no pain in the gum line. No fever or chills. No ear pain. - History of Current Complaint Chief Complaint: UCDentalProblem Time Seen by Provider: 09/11/19 14:14 - Allergies/Home Medications Allergies/Adverse Reactions: Allergies Allergy/AdvReac Type Severity Reaction Status Date / Time No Known Allergies Allergy Verified 09/08/18 15:49 Home Medications: Home Medications Folic Acid TAB* [Folvite TAB*] 1 mg PO DAILY 09/11/19 [History Confirmed ] Methotrexate TAB* 6 tab PO Q7D 09/11/19 [History Confirmed 09/11/19] predniSONE TAB* [Deltasone TAB*] 2.5 mg PO DAILY 09/11/19 [History Confirmed ] PMH/Surg Hx/FS Hx/Imm Hx Cardiovascular History: Reports: Hx Hypertension - ON MEDS Respiratory History: Reports: Hx Asthma - HAS INH/NEB. NOT USED 3+ MONTHS GI History: Reports: Hx Gastroesophageal Reflux Disease - ON DAILY NEXIUM Musculoskeletal History: Reports: Hx Arthritis Sensory History: Reports: Hx Cataracts - BILATERAL, Hx Contacts or Glasses - GLASSES Opthamlomology History: Reports: Hx Cataracts - BILATERAL, Hx Contacts or Glasses - GLASSES - Surgical History Surgery Procedure, Year, and Place: YOUNG CHILD T&A. 1970s RIGHT ING. HERNIA REPAIR. - 5 BREAST SURGERIES (FIBROCYSTIC); hysterectomy 05/18/15; cataracts 2013. R-TKA; left knee 2019 Hx Anesthesia Reactions: No Infectious Disease History: No Infectious Disease History: Denies: Traveled Outside the [place] in Last 30 Days - Family History Known Family History: Negative: Diabetes - Social History Alcohol Use: Occasionally Alcohol Amount: 2-3 DRINKS/MONTH Substance Use Type: Reports: None Substance Use Comment - Amount & Last Used: 3 cups coffee daily Smoking Status (MU): Former Smoker Type: Cigarettes Amount Used/How Often: 1PPD 30 YRS Have You Smoked in the Last Year: No Review of Systems Constitutional: Negative Positive: Other - swelling left parotid gland with pain All Other Systems Reviewed And Are Negative: Yes Physical Exam Triage Information Reviewed: Yes Vital Signs On Initial Exam: Initial Vitals Temp Pulse Resp BP Pulse Ox 97.9 F 83 18 146/68 97 09/11/19 13:36 09/11/19 13:36 09/11/19 13:36 09/11/19 13:36 09/11/19 13:36 Vital Signs Reviewed: Yes Appearance: Positive: Well-Appearing, No Pain Distress Skin: Positive: Warm, Skin Color Reflects Adequate Perfusion Head/Face: Positive: Normal Head/Face Inspection Eyes: Positive: EOMI ENT: Positive: Pharynx normal, TMs normal, Other - left gum line non tender and no swelling. Edentulous bottom. Her left parotid gland is tender to palpation and it is enlarged. Left TM normal. Neck: Positive: Nontender Respiratory/Lung Sounds: Positive: Clear to Auscultation, Breath Sounds Present Cardiovascular: Positive: RRR. Negative: Murmur Abdomen Description: Negative: Distended Musculoskeletal: Positive: Strength/ROM Intact Neurological: Positive: Sensory/Motor Intact, Alert, Oriented to Person Place, Time, CN Intact II-III, Normal Gait, Speech Normal Psychiatric: Positive: Normal Diagnostics - Vital Signs Vital Signs Temp Pulse Resp BP Pulse Ox 09/11/19 13:36 97.9 F 83 18 146/68 97 - Laboratory Lab Statement: Any lab studies that have been ordered have been reviewed, and results considered in the medical decision making process. EENT Course/Dx - Course Course Of Treatment: 79 yr old with sialoadenitis. Rx Clindamycin. FU with ENT. and Primary for BP. - Diagnoses Provider Diagnoses: Sialoadenitis, Hypertension Discharge ED - Sign-Out/Discharge Documenting (check all that apply): Patient Departure All imaging exams completed and their final reports reviewed: No Studies - Discharge Plan Condition: Good Disposition: HOME Prescriptions: Clindamycin Cap(NF) [Clindamycin Cap 300 mg Cap(NF)] 300 mg PO TID #30 cap Patient Education Materials: Sialoadenitis (ED), Hypertension (ED) Referrals: Leonila Tinoco MD [Primary Care Provider] - 2 Days - Billing Disposition and Condition Condition: GOOD Disposition: Home
== END 2019-09-11 14:32 | disposition home or self-care (01) ==
LOC: UCCORT 13:11
DX: K11.20 Sialoadenitis, unspecified (principal); I10 Essential (primary) hypertension; K21.9 Gastro-esophageal reflux disease without esophagitis; Z87.891 Personal history of nicotine dependence; Z79.899 Other long term (current) drug therapy; J45.909 Unspecified asthma, uncomplicated
CPT/HCPCS: 99212; G0463

== ENCOUNTER 2022-04-19 11:22 | Inpatient (IN) ==
[2022-04-19 17:10] LABS: Calcium 8.3 mg/dL (8.6-10.3); eGFR CKD-EPI 89.3 (>60)
[2022-04-19 17:16] LABS: INR 1.25 (0.86-1.15)
[2022-04-19 17:39] LABS: Hematocrit 23 % (35-47); Hemoglobin 7.6 g/dL (12.0-16.0); Mean Corpuscular HGB Conc 34 g/dL (31-36); Mean Corpuscular Hemoglobin 35 pg (27-31); Mean Corpuscular Volume 103 fL (80-97); Mean Platelet Volume 7.2 fL (7.4-10.4); Platelet Count 26 10^3/uL (150-450); Red Blood Count 2.18 10^6 /uL (3.70-4.87); Red Cell Distribution Width 21 % (10-15); White Blood Count 4.4 10^3/uL (3.5-10.8)
[2022-04-19] MEDS ORDERED: Potassium Chloride LIQUID 20 MEQ/15 ML LIQUID PO ONE (17:43)
[2022-04-19] MEDS ORDERED: Albuterol HFA INHALER 8 gm MDI INH PRN (17:50)
[2022-04-19] MEDS: Mometasone/Formoter 200/5 MDI INH SCH (20:00)
[2022-04-19 20:09] LABS: Ferritin 1287.3 ng/mL (11-307)
[2022-04-19 20:12] LABS: Folate 6.73 ng/mL (5.90-24.80)
[2022-04-19 22:25] LABS: Corrected Retic Count 0.9 % (0.5-1.5); Hematocrit for Retic CNT 23 % (35-47); Immature Retic Fraction 0.27
[2022-04-20 07:14] LABS: Hematocrit 20 % (35-47); Hemoglobin 7.1 g/dL (12.0-16.0); Mean Corpuscular HGB Conc 36 g/dL (31-36); Mean Corpuscular Hemoglobin 37 pg (27-31); Mean Corpuscular Volume 103 fL (80-97); Mean Platelet Volume 7.5 fL (7.4-10.4); Platelet Count 17 10^3/uL (150-450); Red Blood Count 1.94 10^6 /uL (3.70-4.87); Red Cell Distribution Width 21 % (10-15)
[2022-04-20 07:23] LABS: CO2 Carbon Dioxide 24 mmol/L (22-32); Calcium 8.1 mg/dL (8.6-10.3); Chloride 99 mmol/L (101-111); Sodium 131 mmol/L (135-145)
[2022-04-20 07:28] LABS: Anion Gap 8 mmol/L (2-11)
[2022-04-20 07:29] LABS: Blood Urea Nitrogen 20 mg/dL (6-24); Glucose 89 mg/dL (70-100)
[2022-04-20] MEDS: Mometasone/Formoter 200/5 MDI INH SCH ×2 (08:08→19:50)
[2022-04-20] MEDS ORDERED: Potassium Chlor 20 meq TAB.ER PO SCH (09:00)
[2022-04-20] MEDS: Ondansetron 4 mg VIAL 2 MG/ML 2 ml VIAL IV PRN (10:27)
[2022-04-20 13:35] LABS: Mean Platelet Volume 7.9 fL (7.4-10.4); Platelet Count 35 10^3/uL (150-450)
[2022-04-21 06:41] LABS: Albumin 2.9 g/dL (3.2-5.2); Albumin/Globulin Ratio 1.4 (1-3); Calcium 7.8 mg/dL (8.6-10.3); Direct Bilirubin 0.1 mg/dL (0.03-0.18); Globulin 2.1 g/dL (2-4); Indirect Bilirubin 0.7 mg/dL (0.3-1.0); Potassium 3.2 mmol/L (3.5-5.0); Total Bilirubin 0.8 mg/dL (0.2-1.0); eGFR CKD-EPI 85.9 (>60)
[2022-04-21] MEDS ORDERED: Potassium Chlor 20 meq TAB.ER PO ONE (07:58)
[2022-04-21] MEDS: Mometasone/Formoter 200/5 MDI INH SCH ×2 (08:01→19:43)
[2022-04-21 08:43] LABS: ABS Eosinophils 0.2 10^3/ul (0-0.6); ABS Lymphocytes 0.9 10^3/ul (1.0-4.8); ABS Monocytes 0.3 10^3/ul (0-0.8); ABS Neutrophils 1.5 10^3/ul (1.5-7.7); Eosinophil % 7.5 %; Hematocrit 18 % (35-47); Hemoglobin 6.3 g/dL (12.0-16.0); Lymphocyte % 31.5 %; Mean Corpuscular HGB Conc 35 g/dL (31-36); Mean Corpuscular Hemoglobin 36 pg (27-31); Mean Corpuscular Volume 105 fL (80-97); Mean Platelet Volume 7.8 fL (7.4-10.4); Nucleated Red Blood Cells % 0.2; Platelet Count 17 10^3/uL (150-450); Red Blood Count 1.75 10^6 /uL (3.70-4.87); Red Cell Distribution Width 21 % (10-15); White Blood Count 2.9 10^3/uL (3.5-10.8)
[2022-04-21 12:24] LABS: Macrocytosis 1+; Polychromasia 1+
[2022-04-21 12:25] LABS: Acanthocytes 1+; Anisocytosis 2+
[2022-04-21 12:58] LABS: Magnesium 1.2 mg/dL (1.9-2.7)
[2022-04-21 14:42] LABS: Hematocrit 25 % (35-47); Hemoglobin 8.6 g/dL (12.0-16.0); Mean Corpuscular HGB Conc 34 g/dL (31-36); Mean Corpuscular Hemoglobin 34 pg (27-31); Mean Corpuscular Volume 98 fL (80-97); Mean Platelet Volume 7.5 fL (7.4-10.4); Platelet Count 16 10^3/uL (150-450); Red Blood Count 2.53 10^6 /uL (3.70-4.87); Red Cell Distribution Width 20 % (10-15)
[2022-04-21] MEDS ORDERED: Magnesium Sulfate IV 3 GM in NS 0.9% 100 ml BAG 100 ML IVPB ONE (14:50)
[2022-04-21] MEDS ORDERED: Magnesium Sulfate 2 GM IV (Premix) IVPB ONE (15:00)
[2022-04-21 15:17] LABS: Hepatitis B Surface Antigen Nonreactive (Nonreactive)
[2022-04-21 15:22] LABS: Hepatitis A Ab IgM Negative (Negative); Hepatitis B Core IgM Nonreactive (Nonreactive)
[2022-04-21] MEDS ORDERED: Magnesium Sulfate 2 gm BAG 2 GM/50 ML BAG IVPB ONE (15:32)
[2022-04-21 15:34] LABS: Hepatitis C Antibody Negative (Negative)
[2022-04-21] MEDS ORDERED: Magnesium Sulfate 1 GM IV 1 GM/100 ML BAG IV ONE (16:00)
[2022-04-21 17:32] LABS: HIV 4th Generation Nonreactive (Nonreactive)
[2022-04-21 18:20] LABS: Hematocrit 24 % (35-47); Hemoglobin 8.4 g/dL (12.0-16.0); Mean Corpuscular HGB Conc 35 g/dL (31-36); Mean Corpuscular Hemoglobin 34 pg (27-31); Mean Corpuscular Volume 97 fL (80-97); Mean Platelet Volume 7.3 fL (7.4-10.4); Platelet Count 43 10^3/uL (150-450); Red Blood Count 2.49 10^6 /uL (3.70-4.87); Red Cell Distribution Width 21 % (10-15); White Blood Count 5.9 10^3/uL (3.5-10.8)
[2022-04-21 18:52] LABS: Urine Appearance Clear; Urine Bilirubin Negative (Negative); Urine Blood Negative (Negative); Urine Color Yellow; Urine Glucose Negative (Negative); Urine Ketones Negative (Negative); Urine Nitrite Negative (Negative); Urine Protein Negative (Negative); Urine Specific Gravity 1.016 (1.002-1.030); Urine Urobilinogen Negative (Negative)
[2022-04-21 19:00] LABS: Urine Creatinine Concentration 80.91 mg/dL
[2022-04-21 19:43] LABS: Urine Potassium Concentration 63.2 mmol/L
[2022-04-22 06:55] LABS: Albumin 3.1 g/dL (3.2-5.2); Albumin/Globulin Ratio 1.5 (1-3); Globulin 2.1 g/dL (2-4); Magnesium 1.7 mg/dL (1.9-2.7); Potassium 3.7 mmol/L (3.5-5.0); Total Bilirubin 1.2 mg/dL (0.2-1.0); Total Protein 5.2 g/dL (6.4-8.9); eGFR CKD-EPI 88.6 (>60)
[2022-04-22] MEDS: Mometasone/Formoter 200/5 MDI INH SCH ×2 (07:00→19:30)
[2022-04-22 07:10] LABS: Hematocrit 22 % (35-47); Hemoglobin 7.7 g/dL (12.0-16.0); Mean Corpuscular HGB Conc 35 g/dL (31-36); Mean Corpuscular Hemoglobin 35 pg (27-31); Mean Corpuscular Volume 100 fL (80-97); Red Blood Count 2.18 10^6 /uL (3.70-4.87); Red Cell Distribution Width 21 % (10-15); White Blood Count 6.8 10^3/uL (3.5-10.8)
[2022-04-22 07:16] LABS: ABS Eosinophils 0.6 10^3/ul (0-0.6); ABS Lymphocytes 1.2 10^3/ul (1.0-4.8); ABS Monocytes 0.8 10^3/ul (0-0.8); ABS Neutrophils 4.3 10^3/ul (1.5-7.7); Eosinophil % 8.3 %; Lymphocyte % 17.3 %
[2022-04-22 08:06] LABS: Platelet Count 43 10^3/uL (150-450)
[2022-04-23] MEDS: Mometasone/Formoter 200/5 MDI INH SCH ×2 (08:03→19:22)
[2022-04-23] MEDS ORDERED: Senna TAB 8.6 mg TAB PO PRN (08:17)
[2022-04-23] MEDS: Magnesium Hydroxide LIQ 30 ML UDC PO PRN (12:05)
[2022-04-23 13:07] LABS: ABS Eosinophils 0.1 10^3/ul (0-0.6); ABS Lymphocytes 0.6 10^3/ul (1.0-4.8); ABS Monocytes 1.6 10^3/ul (0-0.8); ABS Neutrophils 5.8 10^3/ul (1.5-7.7); Eosinophil % 1.7 %; Hematocrit 26 % (35-47); Hemoglobin 8.9 g/dL (12.0-16.0); Lymphocyte % 7.2 %; Mean Corpuscular HGB Conc 34 g/dL (31-36); Mean Corpuscular Hemoglobin 34 pg (27-31); Mean Corpuscular Volume 101 fL (80-97); Mean Platelet Volume 8.5 fL (7.4-10.4); Nucleated Red Blood Cells % 0.1; Platelet Count 24 10^3/uL (150-450); Red Blood Count 2.62 10^6 /uL (3.70-4.87); Red Cell Distribution Width 22 % (10-15); White Blood Count 8.1 10^3/uL (3.5-10.8)
[2022-04-23 13:10] LABS: INR 1.2 (0.86-1.15)
[2022-04-23 13:41] LABS: Albumin 3.4 g/dL (3.2-5.2); Albumin/Globulin Ratio 1.4 (1-3); Calcium 8.4 mg/dL (8.6-10.3); Globulin 2.5 g/dL (2-4); Magnesium 1.5 mg/dL (1.9-2.7); Potassium 3.6 mmol/L (3.5-5.0); Total Bilirubin 1.2 mg/dL (0.2-1.0); Total Protein 5.9 g/dL (6.4-8.9); Uric Acid 3.7 mg/dL (2.3-6.6); eGFR CKD-EPI 77.9 (>60)
[2022-04-23] MEDS ORDERED: Magnesium Sulfate 2 gm BAG 2 GM/50 ML BAG IVPB ONE (16:08)
[2022-04-23] MEDS ORDERED: DOXYcycline 100 MG in NS 0.9% 250 ml 250 ML IVPB SCH (17:00)
[2022-04-23] MEDS ORDERED: NS 0.9% 1000 ml BAG 1,000 ML IV ONE (17:21)
[2022-04-23 18:39] LABS: Urine Appearance Clear; Urine Bilirubin Negative (Negative); Urine Blood Negative (Negative); Urine Color Yellow; Urine Glucose Negative (Negative); Urine Ketones Negative (Negative); Urine Nitrite Negative (Negative); Urine Protein Negative (Negative); Urine Specific Gravity 1.008 (1.002-1.030); Urine Urobilinogen Negative (Negative)
[2022-04-23 23:00] LABS: Anaplasma phagocytophilum Negative (Negative); B. miyamotoi PCR, B Negative (Negative); Babesia divergens/MO-1 Negative (Negative); Babesia ducani Negative (Negative); Ehrlichia chaffeensis Negative (Negative); Ehrlichia ewingii/canis Negative (Negative); Ehrlichia muris eauclairensis Negative (Negative)
[2022-04-24] MEDS: DOXYcycline 100 MG in NS 0.9% 250 ml 250 ML IVPB SCH ×2 (06:26→17:24)
[2022-04-24 06:52] LABS: Hematocrit 22 % (35-47); Hemoglobin 7.7 g/dL (12.0-16.0); Mean Corpuscular HGB Conc 34 g/dL (31-36); Mean Corpuscular Hemoglobin 35 pg (27-31); Mean Corpuscular Volume 102 fL (80-97); Platelet Count 28 10^3/uL (150-450); Red Blood Count 2.19 10^6 /uL (3.70-4.87); Red Cell Distribution Width 24 % (10-15)
[2022-04-24 07:17] LABS: Calcium 7.8 mg/dL (8.6-10.3); Potassium 3.5 mmol/L (3.5-5.0); eGFR CKD-EPI 91.4 (>60)
[2022-04-24 07:26] LABS: ABS Eosinophils 0.2 10^3/ul (0-0.6); ABS Lymphocytes 0.9 10^3/ul (1.0-4.8); ABS Monocytes 1.4 10^3/ul (0-0.8); ABS Neutrophils 3.5 10^3/ul (1.5-7.7); Eosinophil % 2.6 %; Lymphocyte % 14.3 %
[2022-04-24] MEDS: Mometasone/Formoter 200/5 MDI INH SCH ×2 (09:37→19:28)
[2022-04-24] MEDS ORDERED: fentaNYL 100 mcg/2 ml 50 MCG/ML VIAL ONE (12:20)
[2022-04-24] MEDS ORDERED: Midazolam 2 mg/2 ml VIAL 1 mg/ml 2 ml VIAL (2 mg) ONE (12:20)
[2022-04-24 14:04] LABS: Albumin 2.4 g/dL (3.4-4.7); Gamma Globulin 0.6 g/dL (0.6-1.6); Total Protein(PEP) 5.3 g/dL (6.3 - 7.9)
[2022-04-24 16:12] LABS: Lambda Free Light Chain, S 2.57 mg/dL
[2022-04-25] MEDS: DOXYcycline 100 MG in NS 0.9% 250 ml 250 ML IVPB SCH (05:15)
[2022-04-25 06:47] LABS: ABS Eosinophils 0.1 10^3/ul (0-0.6); ABS Lymphocytes 0.8 10^3/ul (1.0-4.8); ABS Monocytes 1.2 10^3/ul (0-0.8); ABS Neutrophils 2.7 10^3/ul (1.5-7.7); Eosinophil % 3.1 %; Hematocrit 22 % (35-47); Hemoglobin 7.5 g/dL (12.0-16.0); Lymphocyte % 15.8 %; Mean Corpuscular HGB Conc 34 g/dL (31-36); Mean Corpuscular Hemoglobin 35 pg (27-31); Mean Corpuscular Volume 102 fL (80-97); Mean Platelet Volume 10.4 fL (7.4-10.4); Platelet Count 65 10^3/uL (150-450); Red Blood Count 2.14 10^6 /uL (3.70-4.87); Red Cell Distribution Width 24 % (10-15); White Blood Count 4.9 10^3/uL (3.5-10.8)
[2022-04-25 07:10] LABS: Calcium 7.8 mg/dL (8.6-10.3); Potassium 3.3 mmol/L (3.5-5.0); eGFR CKD-EPI 89.6 (>60)
[2022-04-25] MEDS ORDERED: Potassium Chlor 20 meq TAB.ER PO ONE (07:18)
[2022-04-25 07:46] LABS: Magnesium 1.8 mg/dL (1.9-2.7)
[2022-04-25] MEDS: Mometasone/Formoter 200/5 MDI INH SCH ×2 (07:49→19:40)
[2022-04-25] MEDS: Magnesium Hydroxide LIQ 30 ML UDC PO PRN (13:53)
[2022-04-26 06:07] LABS: Hematocrit 23 % (35-47); Hemoglobin 8.2 g/dL (12.0-16.0); Mean Corpuscular HGB Conc 35 g/dL (31-36); Mean Corpuscular Hemoglobin 36 pg (27-31); Mean Corpuscular Volume 102 fL (80-97); Mean Platelet Volume 9.4 fL (7.4-10.4); Platelet Count 152 10^3/uL (150-450); Red Blood Count 2.28 10^6 /uL (3.70-4.87); Red Cell Distribution Width 24 % (10-15); White Blood Count 5.1 10^3/uL (3.5-10.8)
[2022-04-26 06:49] LABS: Albumin 2.9 g/dL (3.2-5.2); Albumin/Globulin Ratio 1.3 (1-3); Calcium 8.1 mg/dL (8.6-10.3); Globulin 2.2 g/dL (2-4); Magnesium 1.9 mg/dL (1.9-2.7); Potassium 3.7 mmol/L (3.5-5.0); Total Bilirubin 0.8 mg/dL (0.2-1.0); Total Protein 5.1 g/dL (6.4-8.9); eGFR CKD-EPI 89.3 (>60)
[2022-04-26] MEDS: Mometasone/Formoter 200/5 MDI INH SCH (07:09)
[2022-04-26 07:36] VITALS: BP 101/41
[2022-04-26 08:19] LABS: Macrocytosis 1+
[2022-04-26 08:20] LABS: ABS Lymphocytes 1.3 10^3/ul (1.0-4.8); ABS Neutrophils 2.5 10^3/ul (1.5-7.7)
[2022-04-26 08:21] LABS: ABS Eosinophils 0.2 10^3/ul (0-0.6)
[2022-04-26 08:24] LABS: ABS Eosinophils 0.2 10^3/ul (0-0.6); ABS Monocytes 1.2 10^3/ul (0-0.8); ABS Neutrophils 2.7 10^3/ul (1.5-7.7); Eosinophil % 3.8 %; Lymphocyte % 19.1 %
[2022-04-26] MEDS: Ondansetron 4 mg VIAL 2 MG/ML 2 ml VIAL IV PRN (10:25)
[2022-05-01 16:56] LABS: BM Result Summary Normal
== END 2022-04-26 12:50 | disposition home or self-care (01) | DRG 813 ==
LOC: INTOOBSV 15:41 → MED 15:41 → SUATTDRO 20:28
PROVIDERS: ADMIT Hospitalist; ATTEND Internal Medicine